=== PATIENT | female | born 1995 | race Caucasian/White ===

== ENCOUNTER 2016-10-06 12:59 | Day surgery (SDC) | payer BC ==
[~2016-10-06 12:59] MED LIST: oxyCODONE IR 5 MG TAB PO SCH
--- NOTE | 2016-10-06 13:22 | EDPHY ---
H & P Time Seen by Provider: 10/06/16 13:09 HPI/ROS: Chief complaint. Abdominal pain HPI. 21-year-old female woke up at 3:00 a.m. with generalized abdominal pain. She thought that maybe she ate something did not agree with her. The pain then has moved to the lower right quadrant of her abdomen. She has had nausea vomiting and chills. No fever however. She is constipated for the last 2 days which is unusual for her. Her discomfort goes to her right low back and right flank it area. No urinary symptoms however. No previous similar symptoms. No previous abdominal surgery. No chest discomfort or trouble breathing. ROS Constitutional. Chills Eyes. no problems with vision ENT. no sore throat, no nasal drainage Cardiovascular. no chest pain Respiratory. no shortness of breath, no cough Abdominal. Right lower quadrant abdominal pain . no problems urinating MS. no calf pain/swelling, no neck/back pain, no joint pain Skin. no rash Lymph. no swollen glands Neuro. no headache, no dizziness, no difficulty walking or with speech Past Medical/Surgical History: Past medical history significant for anxiety and attention deficit hyperactivity disorder Social History: Single, nonsmoker, no alcohol Smoking Status: Never smoked Physical Exam: General Appearance: Alert pleasant well-developed female mild distress vital signs are stable Eyes: Pupils equal and round no pallor or injection. ENT, Mouth: Mucous membranes are moist. Respiratory: There are no retractions, lungs are clear to auscultation. Cardiovascular: Regular rate and rhythm. Gastrointestinal: Abdomen is soft with tenderness in the right lower quadrant at McBurney's point. Also some posterior right flank tenderness. Normal bowel sounds. No masses. Neurological: Awake and alert, sensory and motor exams grossly normal. Skin: Warm and dry, no rashes. Musculoskeletal: Neck is supple nontender. Extremities symmetrical, full range of motion. Psychiatric: Patient is oriented X 3, there is no agitation. Constitutional: Initial Vital Signs Temperature (C) 36.7 C 10/06/16 13:00 Heart Rate 76 10/06/16 13:00 Respiratory Rate 16 10/06/16 13:00 Blood Pressure 109/74 10/06/16 13:00 O2 Sat (%) 99 10/06/16 13:00 O2 Delivery Mode Room Air Allergies/Adverse Reactions: No Known Allergies Allergy (Unverified 10/06/16 13:07) Home Medications: Medication Instructions Recorded Amphet Asp and D/Amphet [Adderall 10 mg PO 10/06/16 10 MG (*)] Control Pill 10/06/16 Propranolol HCl [Inderal 20mg (*)] 20 mg PO 10/06/16 hydrOXYzine HCL [hydrOXYzine HCL 25 mg PO 10/06/16 (RX)] Medical Decision Making - Diagnostics Imaging Results: Ultrasound reviewed by me and discussed with Dr. Bruce of the right adnexa shows an 8 cm right ovarian cyst without evidence of torsion. There is some free fluid. Ultrasound of the appendix shows an enlarged noncompressible appendix consistent with appendicitis Procedures: IV normal saline. Zofran for nausea ED Course/Re-evaluation: I have re-evaluated the patient is stable. She and I discussed imaging study results and recommendation for surgical evaluation as this appears to be appendicitis. I have spoken to Dr. Torres, surgeon, who will see the patient in the emergency department. After surgical evaluation Dr. Torres feels the patient also has appendicitis and will take the patient to the operating with Differential Diagnosis: I considered ovarian cyst, ectopic , appendicitis, urinary tract infection including pyelonephritis Departure - Departure Disposition: [facility] Acute Clinical Impression: Acute appendicitis Qualifiers: Acute appendicitis type: with localized peritonitis Qualified Code(s): K35.3 - Acute appendicitis with localized peritonitis Condition: Fair
[2016-10-06] MEDS ORDERED: ONDANSETRON 4 MG/2 ML VIAL IVP ONE (13:37)
[2016-10-06] MEDS ORDERED: NS 1,000 ML IV ONE ×3 (13:37→16:03)
[2016-10-06 13:49] LABS: % IMMATURE GRANULYOCYTES 0.2 % (0.0-1.1); ABSOLUTE IMMATURE GRANULOCYTES 0.02 10^3/uL (0.00-0.10); ADD DIFF? NO; ADD MORPH? NO; ADD SCAN? NO; ATYPICAL LYMPHOCYTE FLAG 20 (0-99); FRAGMENT RBC FLAG 0 (0-99); HEMATOCRIT 43.3 % (38.0-47.0); HEMOGLOBIN 15.3 g/dL (12.6-16.3); LEFT SHIFT FLG 10 (0-99); LIPEMIA HEMOLYSIS FLAG 90 (0-99); MEAN CELL HEMOGLOBIN 31.7 pg (27.9-34.1); MEAN CELL HEMOGLOBIN CONCENTR. 35.3 g/dL (32.4-36.7); MEAN CELL VOLUME 89.8 fL (81.5-99.8); MEAN PLATELET VOLUME 9.4 fL (8.7-11.7); PLATELET CLUMPS FLAG 0 (0-99); PLATELET COUNT 277 10^3/uL (150-400); RED BLOOD CELL COUNT 4.82 10^6/uL (4.18-5.33); RED CELL DISTRIBUTION WIDTH 12.3 % (11.5-15.2)
[2016-10-06 13:51] LABS: COLOR YELLOW; LEUKOCYTE ESTERASE,URINE NEGATIVE (NEGATIVE); NITRITE,URINE NEGATIVE (NEGATIVE)
[2016-10-06] MEDS ORDERED: fentaNYL 100 MCG/2 ML INJ IVP ONE (14:02)
[2016-10-06 14:14] LABS: ANION GAP 11 mEq/L (8-16); CARBON DIOXIDE 20 mEq/l (22-31); CHLORIDE 103 mEq/L (97-110); CREATININE 0.7 mg/dL (0.6-1.0); GLOMERULAR FILTRATION RATE > 60; GLUCOSE 83 mg/dL (70-100); POTASSIUM 4.1 mEq/L (3.5-5.2); SODIUM 134 mEq/L (134-144)
[2016-10-06 16:26] VITALS: PULSE 60; RESP 18
[2016-10-06] MEDS ORDERED: LR 1,000 ML IV ONE ×2 (16:45→17:00)
--- NOTE | 2016-10-06 17:04 | PDGENHP ---
History and Physical - Chief Complaint Abdominal pain - History of Present Illness This is a 21-year-old woman who presents to the hospital with mid epigastric pain radiating to the right lower quadrant over the course last several hours. Subjective fever. Denies nausea vomiting or anorexia. She has not had any previous illnesses. She has not had any sick contacts. She is otherwise well. History Information - Allergies/Home Medication List Allergies/Adverse Reactions: No Known Allergies Allergy (Unverified 10/06/16 13:07) Home Medications: Amphet Asp and D/Amphet [Adderall 10 MG (*)] 10 mg PO 10/06/16 [Last Taken Unknown] Control Pill 10/06/16 [Last Taken Unknown] Propranolol HCl [Inderal 20mg (*)] 20 mg PO 10/06/16 [Last Taken Unknown] hydrOXYzine HCL [hydrOXYzine HCL (RX)] 25 mg PO 10/06/16 [Last Taken Unknown] I have personally reviewed and updated: family history, medical history, social history, surgical history - Past Medical History Additional medical history: C diff colitis - Surgical History Additional surgical history: Tonsillectomy - Social History Smoking Status: Never smoked Alcohol Use: None Drug Use: None Review of Systems Gastrointestinal: Reports: abdominal pain Genitourinary: Reports: no symptoms Muscolosketal: Reports: back pain Physical Exam Physical Exam: Regular rate and rhythm Clear to auscultation bilaterally Abdomen soft nontender in the McBurney's point with rebound tenderness. No suprapubic pain. Mild right CVA tenderness Extremities without edema No skin rashes Normal oropharynx no lesions No cervical supraclavicular or inguinal adenopathy Alert oriented mild distress due to abdominal pain Normal affect Temp Pulse Resp BP Pulse Ox 36.9 C 60 18 111/54 L 100 10/06/16 15:59 10/06/16 15:59 10/06/16 15:59 10/06/16 15:59 10/06/16 15:59 Lab Data & Imaging Review 10/06/16 13:25 10/06/16 13:25 WBC 8.20 10^3/uL (3.80-9.50) 10/06/16 13:25 RBC 4.82 10^6/uL (4.18-5.33) 10/06/16 13:25 Hgb 15.3 g/dL (12.6-16.3) 10/06/16 13:25 Hct 43.3 % (38.0-47.0) 10/06/16 13:25 MCV 89.8 fL (81.5-99.8) 10/06/16 13:25 MCH 31.7 pg (27.9-34.1) 10/06/16 13:25 MCHC 35.3 g/dL (32.4-36.7) 10/06/16 13:25 RDW 12.3 % (11.5-15.2) 10/06/16 13:25 Plt Count 277 10^3/uL (150-400) 10/06/16 13:25 MPV 9.4 fL (8.7-11.7) 10/06/16 13:25 Neut % (Auto) 72.2 % (39.3-74.2) 10/06/16 13:25 Lymph % (Auto) 20.4 % (15.0-45.0) 10/06/16 13:25 Spencer % (Auto) 5.7 % (4.5-13.0) 10/06/16 13:25 Eos % (Auto) 1.1 % (0.6-7.6) 10/06/16 13:25 Baso % (Auto) 0.4 % (0.3-1.7) 10/06/16 13:25 Nucleat RBC Rel Count 0.0 % (0.0-0.2) 10/06/16 13:25 Absolute Neuts (auto) 5.92 10^3/uL (1.70-6.50) 10/06/16 13:25 Absolute Lymphs (auto) 1.67 10^3/uL (1.00-3.00) 10/06/16 13:25 Absolute Monos (auto) 0.47 10^3/uL (0.30-0.80) 10/06/16 13:25 Absolute Eos (auto) 0.09 10^3/uL (0.03-0.40) 10/06/16 13:25 Absolute Basos (auto) 0.03 10^3/uL (0.02-0.10) 10/06/16 13:25 Absolute Nucleated RBC 0.00 10^3/uL (0-0.01) 10/06/16 13:25 Immature Gran % 0.2 % (0.0-1.1) 10/06/16 13:25 Immature Gran # 0.02 10^3/uL (0.00-0.10) 10/06/16 13:25 Sodium 134 mEq/L (134-144) 10/06/16 13:25 Potassium 4.1 mEq/L (3.5-5.2) 10/06/16 13:25 Chloride 103 mEq/L (97-110) 10/06/16 13:25 Carbon Dioxide 20 mEq/l (22-31) L 10/06/16 13:25 Anion Gap 11 mEq/L (8-16) 10/06/16 13:25 BUN 11 mg/dL (7-23) 10/06/16 13:25 Creatinine 0.7 mg/dL (0.6-1.0) 10/06/16 13:25 Estimated GFR > 60 10/06/16 13:25 Glucose 83 mg/dL (70-100) 10/06/16 13:25 Calcium 10.0 mg/dL (8.5-10.4) 10/06/16 13:25 Beta HCG, Qual NEGATIVE 10/06/16 13:25 Urine Color YELLOW 10/06/16 13:25 Urine Appearance CLEAR 10/06/16 13:25 Urine pH 5.0 (5.0-7.5) 10/06/16 13:25 Ur Specific [place] 1.010 (1.002-1.030) 10/06/16 13:25 Urine Protein NEGATIVE (NEGATIVE) 10/06/16 13:25 Urine Ketones NEGATIVE (NEGATIVE) 10/06/16 13:25 Urine Blood NEGATIVE (NEGATIVE) 10/06/16 13:25 Urine Nitrate NEGATIVE (NEGATIVE) 10/06/16 13:25 Urine Bilirubin NEGATIVE (NEGATIVE) 10/06/16 13:25 Urine Urobilinogen NEGATIVE EU (0.2-1.0) 10/06/16 13:25 Ur Leukocyte Esterase NEGATIVE (NEGATIVE) 10/06/16 13:25 Urine Glucose NEGATIVE (NEGATIVE) 10/06/16 13:25 Imaging Review: Imaging Impressions Abdomen Ultrasound 10/06/16 13:44 Impression: 1. Abnormal sonographic appearance of the appendix, which is mildly dilated and noncompressible. 2. Moderate peritoneal free fluid in the right lower quadrant and pelvis. 3. 8.3 similar complex right ovarian cyst. If further characterization of this cyst is clinically warranted, a dedicated pelvic sonogram could be obtained. Results and recommendations discussed directly with Dr. Francisco Oliveira at the time of the examination. Assessment & Plan Assessment: Acute appendicitis large right ovarian cyst that appears benign on ultrasound reviewed with Dr. Hernandez Plan: Laparoscopic evaluation with likely appendectomy and drainage of ovarian cyst. The risks benefits and alternatives of surgery were outlined clearly with the patient including but not limited to bleeding, infection, injury to surrounding structures that could require further intervention. Verbal confirmation of understanding was obtained prior to her giving written consent. 3 g Unasyn x1 NPO IV fluids
[2016-10-06] MEDS ORDERED: AMPICILLIN/SULBACTAM 3 GM in NS 100 ML IV ONE (17:19)
[2016-10-06] MEDS ORDERED: fentaNYL 100 MCG/2 ML INJ IVP PRN (18:34)
[2016-10-06] MEDS ORDERED: BUPIVACAINE 0.5% 30 ML SDV ONE (19:17)
[2016-10-06] MEDS ORDERED: LIDOCAINE 1% 300 MG/30 ML SDV ONE (19:18)
[2016-10-06] MEDS ORDERED: MIDAZOLAM 2 MG/2 ML VIAL IVP ONE (19:24)
--- NOTE | 2016-10-06 19:26 | PDANEPAE ---
ANE History of Present Illness 21yo F for [facility] Past Medical History - Cardiovascular History Hx Hypertension: No Hx Arrhythmias: No Hx Chest Pain: No Hx Coronary Artery / Peripheral Vascular Disease: No Hx CHF / Valvular Disease: No Hx Palpitations: No - Neurologic History Hx Dementia: No - Endocrine History Hx Diabetes: No - Renal History Hx Renal Disorders: No - Liver History Hx Hepatic Disorders: No - Neurological & Psychiatric Hx Hx Neurological and Psychiatric Disorders: No - Cancer History Hx Cancer: No - Congenital Disorder History Hx Congenital Disorders: No - GI History Hx Gastrointestinal Disorders: Yes ANE Review of Systems Review of systems is: negative - Exercise capacity Exercise capacity: >=4 METS METS (RN): 6 METS ANE Patient History - Allergies Allergies/Adverse Reactions: No Known Allergies Allergy (Unverified 10/06/16 13:07) - Home Medications Home Medications: Amphet Asp and D/Amphet [Adderall 10 MG (*)] 10 mg PO 10/06/16 [Last Taken Unknown] Control Pill 10/06/16 [Last Taken Unknown] Propranolol HCl [Inderal 20mg (*)] 20 mg PO 10/06/16 [Last Taken Unknown] hydrOXYzine HCL [hydrOXYzine HCL (RX)] 25 mg PO 10/06/16 [Last Taken Unknown] - NPO status NPO Since - Liquids (Date): 10/06/16 NPO Since - Liquids (Time): 12:30 NPO Since - Solids (Date): 10/06/16 NPO Since - Solids (Time): 09:00 - Anes Hx Anes Hx: no prior problems - Smoking Hx Smoking Status: Never smoked - Alcohol Use Alcohol Use: None ANE Labs/Vital Signs - Labs Result Diagrams: 10/06/16 13:25 10/06/16 13:25 - Vital Signs Blood Pressure: 111/54 Heart Rate: 60 Respiratory Rate: 18 O2 Sat (%): 100 Height: 162.56 cm Weight: 61.235 kg ANE Physical Exam - Airway Neck exam: FROM Mallampati Score: Class 1 Mouth exam: normal dental/mouth exam - Pulmonary Pulmonary: clear to auscultation - Cardiovascular Cardiovascular: regular rate and rhythym - ASA Status ASA Status: II
[2016-10-06] MEDS ORDERED: PROPOFOL 200 MG/20 ML VIAL ONE (19:35)
[2016-10-06] MEDS ORDERED: ALBUTEROL HFA ANES ONLY 200 PUFFS/8.5 GM MDI IH ONE (19:38)
[2016-10-06] MEDS ORDERED: ROCURONIUM 50 MG/5 ML VIAL ONE (19:38)
[2016-10-06] MEDS ORDERED: fentaNYL 100 MCG/2 ML INJ ONE ×3 (19:39→21:09)
[2016-10-06] MEDS ORDERED: MIDAZOLAM 2 MG/2 ML VIAL ONE (19:55)
[2016-10-06] MEDS ORDERED: ONDANSETRON 4 MG/2 ML VIAL ONE (19:58)
[2016-10-06] MEDS ORDERED: DEXAMETHASONE 4 MG/ML VIAL ONE ×2 (19:58)
[2016-10-06] MEDS ORDERED: HYDROCODONE/APAP 5/325 TAB PO PRN (20:07)
[2016-10-06] MEDS ORDERED: ALBUTEROL 3 ML DEYVIAL IH PRN (20:07)
[2016-10-06] MEDS ORDERED: NALOXONE HCL 0.4 MG/ML INJ IVP PRN (20:07)
[2016-10-06] MEDS ORDERED: HYDROmorphONE/DILAUDID 1 MG/ML SYR IVP PRN (20:07)
[2016-10-06] MEDS ORDERED: PROMETHAZINE HCL 25 MG/ML INJ IVP PRN (20:07)
[2016-10-06] MEDS ORDERED: ONDANSETRON 4 MG/2 ML VIAL IVP PRN (20:07)
[2016-10-06] MEDS ORDERED: LR 500 ML IV PRN (20:07)
[2016-10-06] MEDS: fentaNYL 100 MCG/2 ML INJ IVP PRN ×2 (21:10→21:27)
--- NOTE | 2016-10-06 21:17 | POSTOPPROG ---
Post Op Note Date of Operation: 10/06/16 Surgeon: Riccardo Torres Legal Billing Coordinator: none Anesthesiologist: Jackie Anesthesia: GET(General Endotracheal) Pre-op Diagnosis: appendicitis, right ovarian cyst Post-op Diagnosis: same Indication: pain Procedure: Laparoscopic Appendectomy and cyst aspiration Findings: 8 cm ovarian cyst Inf/Abcess present in the surg proc area at time of surgery?: No EBL: Minimal Complications: none Specimen(s): appendix
[2016-10-06] MEDS ORDERED: oxyCODONE IR 5 MG TAB PO PRN (21:20)
[2016-10-06] MEDS ORDERED: HYDROmorphONE/DILAUDID 2 MG/ML INJ ONE (21:52)
[2016-10-06] MEDS ORDERED: HYDROmorphONE/DILAUDID 1 MG/ML SYR ONE (21:53)
[2016-10-06 22:26] VITALS: TEMP 98.8
[2016-10-06] MEDS ORDERED: oxyCODONE IR 5 MG TAB ONE (22:36)
[2016-10-06 22:45] VITALS: BP 115/73; O2SAT 96
== END 2016-10-06 23:05 | disposition home or self-care (01) ==
LOC: EDSTATUS 16:53 → FSGY 16:53
PROVIDERS: ATTEND Emergency Medicine
PROC: 0DTJ4ZZ Resection of Appendix, Percutaneous Endoscopic Approach (ICD-10-PCS; principal; 2016-10-06 17:30)
PROC: 0U904ZZ Drainage of Right Ovary, Percutaneous Endoscopic Approach (ICD-10-PCS; principal; 2016-10-06 17:30)
DX: K35.80 Unspecified acute appendicitis (principal); N83.201 Unspecified ovarian cyst, right side
CPT/HCPCS: 96374; J0295; J1100; J1170; J2250; J2405; J2704; J3010